=== PATIENT | female | born 1940 | race Hispanic/Latino ===

== ENCOUNTER → 2025-02-14 13:46 | Outpatient (REF) | payer MEDICARE, BC, OTHER, SELFPAY | LOC: HWRCS 13:46 | PROVIDERS: ATTENDING PHYSICIAN Nurse Practitioner; FAMILY PHYSICIAN Family Medicine | DX: I48.0 Paroxysmal atrial fibrillation (principal); I50.32 Chronic diastolic (congestive) heart failure | CPT/HCPCS: 93306 ==